=== PATIENT | male | born 1940 | race Caucasian/White ===

== ENCOUNTER → 2017-02-03 10:50 | Outpatient (CLI) | payer MEDICARE, BC ==
[2017-02-04 10:17] LABS: PSA - % FREE 30.4 % (()); PSA - FREE 0.73 ng/mL; PSA - TOTAL 2.4 ng/mL (0.0-4.0)
== END | disposition home or self-care (01) ==
LOC: D.LAB 10:50
PROVIDERS: Urology
DX: R97.20 Elevated prostate specific antigen [PSA] (principal); Z12.5 Encounter for screening for malignant neoplasm of prostate

== ENCOUNTER → 2017-10-07 18:14 | Outpatient (CLI) | payer MEDICARE, BC | END | disposition home or self-care (01) | LOC: D.LABREF 18:14 | DX: D72.829 Elevated white blood cell count, unspecified (principal) ==

== ENCOUNTER → 2017-11-06 09:31 | Outpatient (CLI) | payer MEDICARE, BC | END | disposition home or self-care (01) | LOC: D.LAB 09:31 | DX: R97.20 Elevated prostate specific antigen [PSA] (principal) ==

== ENCOUNTER → 2019-03-16 22:55 | Outpatient (CLI) | payer MEDICARE, BC | END | disposition home or self-care (01) | LOC: D.LABREF 22:55 | PROVIDERS: ATTEND Urology | DX: R31.9 Hematuria, unspecified (principal) ==

== ENCOUNTER 2019-04-12 10:57 | Emergency (ER) | payer MEDICARE, BC ==
[~2019-04-12] VITALS: Ht 193 cm; Wt 118.2 kg
[~2019-04-12 10:57] MED LIST: BAYER CHEWABLE81 MG PO; FLOMAX0.4 MG PO; FLUTICASONE PRO16 GM; KEFLEX500 MG PO; MULTI-DAY VITAM1 TAB PO; OMEPRAZOLE20 M1 PO; OXYBUTYNIN CHLOR5 M1 PO; PROSCAR5 MG PO; SMZ-TMP DS TABL1 TAB PO; TOPROL XL50 MG PO; VOLTAREN75 MG PO
[2019-04-12 11:11] VITALS: Ht 193 cm; Wt 118.2 kg
[2019-04-12 11:51] LABS: BASOPHILS 0.1 % (0-2); EOSINOPHILS 1.5 % (0-7); HEMOGLOBIN 14.6 g/dL (13.5-17.5); IMMATURE GRANULOCYTES 0.2 % (0-5); LYMPHOCYTES 18.9 % (15-50); MCH 33.3 pg (26.0-34.0); MCHC 34.8 g/dL (31.0-37.0); MCV 95.7 fL (80.0-100.0); MEAN PLATELET VOLUME 9.8 fL (7.4-10.4); MONOCYTES 5.5 % (2-11); NEUTROPHILS 73.8 % (40-80); RBC 4.39 10x6/uL (4.20-6.10); RDW 12.4 % (11.5-14.5); WBC 8.5 10x3/uL (4.8-10.8)
[2019-04-12 11:53] LABS: PLATELET COUNT 184 10x3/uL (130-400)
[2019-04-12 12:00] LABS: APTT 35.4 SECONDS (22.8-39.4); CALC OSMOLALITY 273 mosm/kg (275-300); CALCIUM 9.6 mg/dL (8.5-10.1); CARBON DIOXIDE 28.8 mmol/L (21.0-32.0); CHLORIDE - SERUM 102 mmol/L (98-107); CREATININE - SERUM 0.9 mg/dL (0.6-1.3); GLUCOSE 114 mg/dL (74-106); INR 1.09 (0.85-1.17); POTASSIUM - SERUM 3.8 mmol/L (3.5-5.1); PROTIME 14.1 SECONDS (11.6-15.0); SODIUM 137 mmol/L (136-145); UREA NITROGEN 11 mg/dL (7-18); eGFR NON AFRICAN AMERICAN 86 mL/min (90-120)
[2019-04-12 12:13] LABS: ALBUMIN 3.4 g/dL (3.4-5.0); ALKALINE PHOSPHATASE 70 U/L (30-120); ALT (SGPT) 26 U/L (10-68); BILIRUBIN - TOTAL 0.91 mg/dL (0.2-1.3); CKMB 0.2 U/L (0.0-3.6); CREATINE KINASE 38 UL (21-232); PROTEIN - SERUM 7.4 g/dL (6.4-8.2)
[2019-04-12 12:14] LABS: TROPONIN-I < 0.017 ng/mL (0.000-0.060)
[2019-04-12 12:20] LABS: BILIRUBIN NEGATIVE (NEGATIVE); GLUCOSE NEGATIVE (NEGATIVE); KETONE NEGATIVE (NEGATIVE); NITRITE NEGATIVE (NEGATIVE); UROBILINOGEN NORMAL (NORMAL)
[2019-04-12] MEDS ORDERED: ACETAMINOPHEN500 M1 PO (12:41)
[2019-04-12 13:02] VITALS: BP 118/71
== END 2019-04-12 13:03 | disposition home or self-care (01) ==
LOC: D.ER 10:57
PROVIDERS: Family Medicine
DX: R50.9 Fever, unspecified (principal); J06.9 Acute upper respiratory infection, unspecified; I10 Essential (primary) hypertension

== ENCOUNTER 2019-04-14 09:55 | Day surgery (SDC) | payer MEDICARE, BC ==
[~2019-04-14] VITALS: Ht 193 cm; Wt 118.4 kg
[~2019-04-14 09:55] MED LIST changes: +ACETAMINOPHEN500 M1 PO
[2019-04-14 10:48] VITALS: BP 139/80; Ht 193 cm; Wt 118.4 kg
--- NOTE | 2019-04-15 09:16 | OP ---
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 PSA is 4.44 on finasteride. Transrectal ultrasound shows a 35 gram prostate. Prostate biopsy showed benign pathology. IPSS is 18 and quality of life is 4 on Proscar, Flomax, and oxybutynin. PROCEDURE: UroLift times 5. FINDINGS: Obstructive bilateral lateral lobe. No bladder tumors. Single ureteral orifices bilaterally. ESTIMATED BLOOD LOSS: Minimal. CLINICAL HISTORY: This is an 78-year-old man who has obstructive voiding symptoms and recurrent urinary tract infections. He had an elevated PSA of 4.44 while on finasteride. He had a prostate biopsy, which was benign. Cystoscopy done at that time showed long obstructive lateral lobes with a tight bladder neck. No bladder tumors were seen. The pathology on the biopsy was benign. He comes now to have the UroLift procedure done. HE IS ALLERGIC TO CODEINE. He was given Levaquin IV cotton puller to the OR. DESCRIPTION OF PROCEDURE: The patient was given IV sedation. He was placed into lithotomy position and prepped and draped. The UroLift scope was introduced and the findings are as outlined above. At 1.5 cm distal to the bladder neck at the anterolateral sulcus, one unit was placed on each side. I then went to the verumontanum and at the anterolateral sulcus, we placed 1 unit on each side. There still was a bulge in the mid urethra from the left lateral lobe. In the mid urethra at the mid distance in the anterior and posterior direction, I placed 1 UroLift unit. Now, he has an open prostatic urethra. Due to the vascular nature of the prostate, there was some bleeding. I decided to place a Hurst catheter. Through the scope, a Sensor wire was placed into the bladder. The scope was then removed, leaving the wire in place. A 16[place] Hurst catheter was placed over the wire into the bladder. Once the catheter was fully in the bladder, the balloon was inflated with 10 cc of sterile water. The wire was then removed entirely. The catheter was put to bag drainage. I will see him in followup next week to remove the Hurst catheter for a voiding trial. TRANSINT:[id number] Voice Confirmation ID: [id number] DOCUMENT ID: [id number] OPERATIVE REPORT [id number] DL KWAN ROBERT S MD at 0916 CC: [id number] DICTATION DATE: 04/14/19 1312 BLUEPRINT DUPLICATOR: 04/14/19 [id number] [facility] 04/14/[address] [id number]
== END 2019-04-14 16:25 | disposition home or self-care (01) ==
LOC: D.OPS 09:55 → D.PAN 11:10 → D.OPS 11:15 → D.PAN 12:15 → D.OPS 12:15 → D.PAN 13:00 → D.OPS 16:25
PROVIDERS: ATTEND Urology
DX: N40.1 Benign prostatic hyperplasia with lower urinary tract symptoms (principal); N39.0 Urinary tract infection, site not specified; I10 Essential (primary) hypertension; R33.8 Other retention of urine

== ENCOUNTER → 2019-09-26 23:58 | Outpatient (CLI) | payer MEDICARE, BC ==
[2019-04-14 10:48] VITALS: BMI 31.8
== END | disposition home or self-care (01) ==
LOC: D.LABREF 23:58
PROVIDERS: ATTEND Urology
DX: R31.9 Hematuria, unspecified (principal)